=== PATIENT | male | born 1975 | race Caucasian/White ===

== ENCOUNTER 2016-09-18 09:05 | Emergency (ER) | payer OTHER ==
--- NOTE | ~2016-09-18 | CR230 ---
[facility]. [facility] A Service of [facility] & [facility] RADIOLOGY TEXT RESULTS PATIENT: TARIK SANTANA LOCATION: SED : 77 UNIT #: [id number] AGE: [address]: Danny Bridges MD SEX: M ORDER DR: [id number] [place] [place] [id number] E MR#: [id number] Acc #: [id number] NAME: TARIK SANTANA : 1975 SEX: M STUDY DATE/TIME: 09/18/2016 9:59 UNIT: SED ROOM: STUDY DESCRIPTION: CR Shoulder Min 2 View Rt Attending Physician: Danny Bridges M.D. Ordering Physician: Danny Bridges M.D. Primary Care Physician: Primary Care Physician No MEDICAL IMAGING REPORT This report is preliminary unless electronic signature is present. EXAM Right shoulder 09/18/2016 HISTORY 40-year-old male with right shoulder pain beginning 09/15/2016. COMPARISON None. FINDINGS 3 views of the right shoulder demonstrate no acute fracture or dislocation. Acromioclavicular joint is within normal limits. Soft tissues are unremarkable. IMPRESSION Unremarkable right shoulder. Dictated by... Master Awad M.D. THIS IS AN ELECTRONICALLY VERIFIED REPORT Master Awad M.D. at 09/19/2016 8:43 AM CHRISTIN/agatha TD: 09/18/2016 21:42 JOB #: [id number] MEDICAL IMAGING REPORT Page 1 of 1
== END 2016-09-18 10:36 | disposition home or self-care (01) ==
LOC: SED 09:05
DX: S46.011A Strain of muscle(s) and tendon(s) of the rotator cuff of right shoulder, initial encounter (principal); S46.811A Strain of other muscles, fascia and tendons at shoulder and upper arm level, right arm, initial encounter; E11.9 Type 2 diabetes mellitus without complications; Z88.0 Allergy status to penicillin; X50.0XXA Overexertion from strenuous movement or load, initial encounter; Y92.69 Other specified industrial and construction area as the place of occurrence of the external cause; Y99.0 Civilian activity done for income or pay
CPT/HCPCS: 73030; 99283